=== PATIENT | female | born 1950 | race Caucasian/White ===

== ENCOUNTER 2016-09-06 14:36 | Emergency (ER) | payer MEDICARE ==
[2016-09-06 15:24] VITALS: BP 159/82
[2016-09-06] MEDS ORDERED: Acetaminophen TAB* 325 MG PO ONE (15:55)
--- NOTE | 2016-09-06 15:55 | UC ---
Head Injury HPI - HPI Summary HPI Summary: 66 year old female with complaints of falling on the ice approximately 4 hours ago. She states she hit the back of her head, elbows, and right hip. She was able to get up with help from her son. She is able to walk bearing full weight. She recalls all events of the fall and following the fall. She is concerned about the bump on her head. Denies LOC, nausea or vomiting. She denies taking any blood thinning medication - History Of Current Complaint Chief Complaint: UCHeadInjury Stated Complaint: head injury-fell on ice Time Seen by Provider: 09/06/16 15:43 Hx Obtained From: Patient ?: No Onset/Duration: Sudden Onset, Lasting Hours - 4, Still Present Severity Currently: Mild Severity Initially: Severe Pain Scale Used: 0-10 Numeric - 3 Character: Dull Aggravating Factor(s): Other - touching her head Alleviating Factor(s): Nothing Associated Signs And Symptoms: Negative: LOC (Time In Secs./Mins/Hrs), LOC Duration Unknown, Confusion, Memory Loss, Seizure, Epistaxis, Dental Malocclusion, Neck Pain, Nausea, Vomiting - Risk Factors SDH Risk Factor: Negative - Allergies/Home Medications Allergies/Adverse Reactions: Allergies Allergy/AdvReac Type Severity Reaction Status Date / Time No Known Allergies Allergy Verified 09/06/16 15:24 Home Medications: Home Medications Anastrozole (NF) [Arimidex (NF)] 1 mg PO BEDTIME 09/06/16 [History Confirmed ] Cholecalciferol [Vitamin D3 Super Strength] 2,000 unit PO BEDTIME 09/06/16 [ History Confirmed 09/06/16] Citalopram TAB* [CeleXA TAB*] 40 mg PO BEDTIME 09/06/16 [History Confirmed 09/06] Metoprolol Succinate [Toprol Xl] 1 tab BEDTIME 09/06/16 [History Confirmed 09/06] Omeprazole CAP* [Prilosec CAP* 20 MG] 40 mg PO BEDTIME 09/06/16 [History Confirmed 09/06/16] PMH/Surg Hx/FS Hx/Imm Hx Previously Healthy: Yes Cardiovascular History Of: Reports: Cardiac Disorders - RBBB, Hypertension - h/o Respiratory History Of: Denies: Asthma - Surgical History Surgical History: Yes Surgery Procedure, Year, and Place: left breast lumpectomy/nodes. hiatal hernia repair. cardiac cath - Family History Known Family History: Positive: Hypertension Negative: Diabetes - Social History Occupation: Retired Lives: With Family Alcohol Use: None Substance Use Type: None Smoking Status (MU): Never Smoked Tobacco - Immunization History Most Recent Influenza Vaccination: [id number] Review of Systems Constitutional: Negative Skin: Bruising - right elbow Eyes: Negative ENT: Negative Respiratory: Negative Cardiovascular: Negative Gastrointestinal: Negative Genitourinary: Negative Motor: Negative Neurovascular: Negative Musculoskeletal: Arthralgia - elbows and right hip Neurological: Headache - mild Psychological: Negative All Other Systems Reviewed And Are Negative: Yes Physical Exam Triage Information Reviewed: Yes Appearance: Well-Appearing, Well-Nourished, Pain Distress - pacing in the exam room. easily directed and cooperative Vital Signs: Initial Vital Signs Temp 98.7 F 09/06/16 15:18 Pulse 51 09/06/16 15:18 Resp 17 09/06/16 15:18 BP 159/82 09/06/16 15:18 Pulse Ox 100 09/06/16 15:18 Vital Signs Reviewed: Yes Eyes: Positive: Conjunctiva Clear, Other: - PERRLA. Negative: Discharge ENT: Positive: Pharynx normal, Other: - Small tender raised bump on right posterior head. Skin intact, no obvious bruising. no aguilar sign. Negative: Nasal congestion Neck: Positive: Supple, Nontender - no midline cervical tenderness, No Lymphadenopathy Respiratory: Positive: Lungs clear, Normal breath sounds Cardiovascular: Positive: RRR, No Murmur Musculoskeletal: Positive: Strength Intact - ambulating with steady gate., ROM Intact - all 4 extremities. Small bruising noted at right elbow. Full rom of right shoulder, elbow and wrist., No Edema - No bruising or redness noted on right hip. Mild tendernesss with palpation over posterior right hip. No tenderness over spine Neurological: Positive: Alert, Muscle Tone Normal Psychological: Positive: Age Appropriate Behavior - pleasant and cooperative Skin: Negative: rashes, breakdown Head Injury Course/Dx - Course Course Of Treatment: Tylenol for pain - Differential Dx/Diagnosis Differential Diagnosis/HQI/PQRI: Contusion Provider Diagnoses: Minor head trauma. Contusion with mild hematoma of right elbow. Contusion right hip Discharge - Discharge Plan Condition: Stable Disposition: HOME Prescriptions: Acetaminophen TAB* [Tylenol TAB*] 650 mg PO Q6H PRN #120 tab PRN Reason: Pain Patient Education Materials: Contusion in Adults (ED), Head Injury (ED) Referrals: Pranay Salgado JR, MD [Primary Care Provider] -
== END 2016-09-06 16:10 | disposition home or self-care (01) ==
LOC: UCCORT 14:36 → MERGE 14:36 → UCCORT 16:10
DX: S09.90XA Unspecified injury of head, initial encounter (principal); S50.01XA Contusion of right elbow, initial encounter; S70.01XA Contusion of right hip, initial encounter; I10 Essential (primary) hypertension; W00.0XXA Fall on same level due to ice and snow, initial encounter; Y92.9 Unspecified place or not applicable
CPT/HCPCS: 99202; A9270-GY; G0463

== ENCOUNTER 2017-12-22 16:25 | Emergency (ER) | payer MEDICARE ==
[2017-12-22 16:41] VITALS: BP 155/67
--- NOTE | 2017-12-22 17:04 | UC ---
Ear Complaint HPI - HPI Summary HPI Summary: 67 yo female with decreased hearing both ears tried to clean them used q-tip some blood left EAC tried to flush them herself - History of Current Complaint Chief Complaint: UCEar Stated Complaint: BILATERAL EAR PAIN, SORE THROAT Time Seen by Provider: 12/22/17 16:42 Hx Obtained From: Patient Onset/Duration: Gradual Onset, Lasting Days Severity Initially: Mild Severity Currently: Mild Pain Intensity: 2 Pain Scale Used: 0-10 Numeric Associated Signs/Symptoms: Positive: Hearing Loss, Trauma to Ear - qtip - Allergies/Home Medications Allergies/Adverse Reactions: Allergies Allergy/AdvReac Type Severity Reaction Status Date / Time No Known Allergies Allergy Verified 06/25/15 13:59 PMH/Surg Hx/FS Hx/Imm Hx Previously Healthy: Yes Cardiovascular History: Hypertension GI/ History: Gastroesophageal Reflux - Surgical History Surgical History: Yes Surgery Procedure, Year, and Place: left breast lumpectomy/nodes. hiatal hernia repair. cardiac cath - Family History Known Family History: Positive: Hypertension Negative: Diabetes - Social History Alcohol Use: None Substance Use Type: None Smoking Status (MU): Never Smoked Tobacco - Immunization History Most Recent Influenza Vaccination: [id number] Review of Systems Constitutional: Negative Skin: Negative Eyes: Negative ENT: Ear Ache - and dereased hearing Respiratory: Negative Cardiovascular: Negative Gastrointestinal: Negative Genitourinary: Negative Motor: Negative Neurovascular: Negative Musculoskeletal: Negative Neurological: Negative Psychological: Negative Is Patient Immunocompromised?: No All Other Systems Reviewed And Are Negative: Yes Physical Exam Triage Information Reviewed: Yes Appearance: Well-Appearing, No Pain Distress, Well-Nourished Vital Signs: Initial Vital Signs Temp 97.9 F 12/22/17 16:36 Pulse 57 12/22/17 16:36 Resp 17 12/22/17 16:36 BP 155/67 12/22/17 16:36 Pulse Ox 100 12/22/17 16:36 Vital Signs Reviewed: Yes Eyes: Positive: Conjunctiva Clear ENT: Negative: Hearing grossly normal, TMs normal - unable to vis due to cerumen Neck: Positive: Supple, Nontender Respiratory: Positive: Lungs clear, Normal breath sounds, No respiratory distress Cardiovascular: Positive: RRR, No Murmur Musculoskeletal: Positive: ROM Intact, No Edema Neurological: Positive: Alert Psychological Exam: Normal Skin Exam: Normal Re-Evaluation - Re-Evaluation First Eval Re-Evaluation Time: 17:17 Change: Improved - hearing back to normal post flush Ear Complaint Course/Dx - Differential Dx/Diagnosis Provider Diagnoses: cerumen imaction R/L ear Discharge - Sign-Out/Discharge Documenting (check all that apply): Discharge/Admit/Transfer - Discharge Plan Condition: Stable Disposition: HOME Patient Education Materials: Cerumen Impaction (ED) Referrals: Devin Diggs MD [Primary Care Provider] - - Billing Disposition and Condition Condition: STABLE Disposition: HOME
== END 2017-12-22 17:21 | disposition home or self-care (01) ==
LOC: UCCORT 16:25
DX: H61.23 Impacted cerumen, bilateral (principal); I10 Essential (primary) hypertension
CPT/HCPCS: 69210; 99213; G0463

== ENCOUNTER 2018-06-01 12:01 | Emergency (ER) | payer MEDICARE ==
--- OUTSIDE RECORDS SUMMARY | 2018-06-01 12:26 | XMS REPORT | Continuity of Care Document ---
:1950 External Reference #:[id number] Author Name Devin Diggs M.D. Address [address] [facility] [address] [place] [address] Care Team Providers Name Role Phone Umang Ramon D.O. 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 Helen Allen PayID: [id number] [address] [place] [address] Advance Directives Description No Information Available Problems Date Description Provider Status Onset: 10/23/2011 Benign essential hypertension Devin Diggs M.D. Active Onset: 10/23/2011 Anxiety state Devin Diggs M.D. Active Onset: 10/23/2011 Depressive disorder Devin Diggs M.D. Active Onset: 10/23/2011 Chronic obstructive lung disease Devin Diggs M.D. Active Onset: 10/23/2011 Palpitations Devin Diggs M.D. Active Onset: 10/23/2011 Conduction disorder of the heart Devin Diggs M.D. Active Onset: 10/23/2011 Breast lump Devin Diggs M.D. 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 Active Family History Date Family Member(s) Problem(s) Comments Father 93 Mother 87 Children 1 First Son 30 First Son No Current Problems Siblings 4 First Brother 65 First Brother No Current Problems Second Brother 60 Second Brother Anxiety Third Brother 50 Third Brother Anxiety First Sister 68 First Sister No Current Problems Social History Type Date Description Comments Sex Unknown Marital Status Legal Status: Marital Status Has been 2 times Tobacco Use Start: Unknown Never Smoked Cigarettes ETOH Use Rarely consumed alcohol in the past Tobacco Use Start: Unknown Patient has never smoked Allergies, Adverse Reactions, Alerts Description No Known Drug Allergies Medications Medication Date Status Form Strength Qnty SIG Indications Ordering Provider Elimite Hx Cream 5% 60gm apply to B86 Dontae 018 - all skin Devin Hopkins, and M.D. 018 leave for 12 hours then rinse Vitamin D3 Active Capsules 2000Unit 90caps 1 by M81.0 Dontae, 018 mouth Devin Hopkins, every M.D. day Metoprolol Active Tablets ER 100mg 30tabs 1 by I10 Dontae, Succinate ER 016 24HR mouth Devin Hopkins, every M.D. day Omeprazole Active Capsules DR 40mg 30caps 1 by K21.0 Dontae, 016 mouth Devin Hopkins, every M.D. day K30 R05 Citalopram 10/23/2011 Active Tablets 40mg 30tabs take one F41.9 Dontae, Hydrobromide tablet by Devin Hopkins, mouth once M.D. daily F33.9 Amoxicillin 10/09/2014 Hx Tablets 500mg 30tabs 1 by mouth three 466.0 DontaeDevin, - times a day M.D. 10/19/2014 461.8 382.9 Oow 04/20/2014 - Hx Please excuse Gianni 10/08/2014 Helen from [facility] Leonardo work 04/20/2014 thru 04/23/2014 Spironolactone 04/20/2014 - Hx Tablets 25mg 30ta take 1 tablet R60. Gianni, 01/08/2017 bs by mouth in 0 Malissa, [employer] in the morning Azithromycin 08/29/2013 - Hx Tablets 250mg 1Pac 2 po today 461. Devin Diggs 09/02/2013 k then 1 po 8 M. MInder. next 4 days Albuterol Sulfate 08/29/2013 - Hx Nebulizer (2.5m 180m [facility] J[facility]. [facility] g/3ML l nebulizer q4 9 M.Rissa ) hours prn for 0.083 cough/sob % R06.02 Nebulizer And 08/29/2013 - Hx 1units uad for J44.9 Dontae, Tubing 11/08/2017 cough/SOB Devin Hopkins M.D. Levofloxacin 08/18/2013 - Hx Tablets 500mg 10tabs 1 po qd 461.8 Dontae, 08/28/2013 Devin Hopkins M.D. 466.0 462 Prednisone 08/18/2013 - Hx Tablets 20mg 20tabs 2 tab by mouth daily 4 461.8 [facility], 09/01/2013 days,30x3d,20x2d,10x7d Devin Hopkins M.D. 786.2 466.0 Ventolin HFA 08/18/2013 - Hx Aerosol 108(90Base) 2Mdi 2 puffs q4 R06.02 Gianni, 11/08/2017 mcg/Act hours as Malissa, needed [employer] cough/sob Omeprazole 02/28/2013 - Hx Capsules 40mg 30caps 1 po qd 530.11 Dontae, 05/10/2013 DR Devin Hopkins M.D. Anastrozole 01/21/2012 - Hx Tablets 1mg 90tabs 1 tab by C50.012 [facility], 01/08/2017 mouth every Devin Hopkins, day(per [facility] until 2016) Metoprolol 10/23/2011 - Hx Tablets 50mg 180tab take 2 I10 Dontae, Tartrate 10/02/2015 s tablets by Ahkal Gentile M.D. Medications Administered in Office Medication Date Status Form Strength Qnty SIG Indications Ordering Provider Solu-Medrol Administered Injection Gaurav, 125MG 014 ZOIE Dowd Rocephin 250 Administered Injection Gaurav, 014 Noemí, [employer] Rocephin 250 Administered Injection Gaurav, 014 [place]em[place], [employer] Rocephin 250 Administered Injection Gaurav, 014 Onemí, [employer] Rocephin 250 Administered Injection Gaurav, 014 Noemí, [employer] Immunizations CPT Code Status Date Vaccine Lot # [id number] Refused 06/01/2014 Flu Vaccine Vital Signs Date Vital Result Comment 05/04/2018 3:02pm BP Systolic 112 mmHg BP Diastolic 60 mmHg Height 55 inches 4'7" Weight 158.00 lb BMI (Body Mass Index) 36.7 kg/m2 Heart Rate 59 /min Respiratory Rate 16 /min 11/16/2017 9:58am BP Systolic 126 mmHg BP Diastolic 70 mmHg Height 55 inches 4'7" Weight 158.00 lb BMI (Body Mass Index) 36.7 kg/m2 Heart Rate 86 /min Respiratory Rate 18 /min 01/15/2017 10:48am BP Systolic 126 mmHg BP Diastolic 64 mmHg Height 55 inches 4'7" Weight 167.00 lb BMI (Body Mass Index) 38.8 kg/m2 Heart Rate 58 /min Respiratory Rate 16 /min 11/06/2015 8:44am BP Systolic 145 mmHg BP Diastolic 81 mmHg Height 55 inches 4'7" Weight 169.00 lb BMI (Body Mass Index) 39.3 kg/m2 Heart Rate 63 /min Body Temperature 96.5 F Respiratory Rate 18 /min 10/02/2015 11:34am BP Systolic 166 mmHg BP Diastolic 81 mmHg Height 55 inches 4'7" Weight 169.00 lb BMI (Body Mass Index) 39.3 kg/m2 Heart Rate 57 /min Respiratory Rate 18 /min 10/09/2014 11:18am BP Systolic 132 mmHg BP Diastolic 82 mmHg Height 55 inches 4'7" Weight 153.00 lb BMI (Body Mass Index) 35.6 kg/m2 Heart Rate 71 /min Body Temperature 97.3 F Respiratory Rate 16 /min 06/01/2014 2:09pm BP Systolic 138 mmHg BP Diastolic 86 mmHg Height 55 inches 4'7" Weight 157.00 lb BMI (Body Mass Index) 36.5 kg/m2 Heart Rate 68 /min Body Temperature 97.0 F Respiratory Rate 18 /min 04/20/2014 1:58pm BP Systolic 168 mmHg BP Diastolic 100 mmHg BP Systolic Recheck 156 mmHg BP Diastolic Recheck 80 mmHg Height 55 inches 4'7" Weight 152.00 lb BMI (Body Mass Index) 35.3 kg/m2 Heart Rate 96 /min Respiratory Rate 18 /min 08/29/2013 10:15am BP Systolic 142 mmHg BP Diastolic 94 mmHg Height 55 inches 4'7" Weight 152.00 lb BMI (Body Mass Index) 35.3 kg/m2 Heart Rate 89 /min Body Temperature 9.0 F Respiratory Rate 24 /min 08/18/2013 10:32am BP Systolic 128 mmHg BP Diastolic 70 mmHg Height 55 inches 4'7" Weight 152.00 lb BMI (Body Mass Index) 35.3 kg/m2 Heart Rate 71 /min Body Temperature 98.1 F Respiratory Rate 18 /min 05/31/2013 8:33am BP Systolic 138 mmHg BP Diastolic 80 mmHg Height 55 inches 4'7" Weight 155.00 lb BMI (Body Mass Index) 36.0 kg/m2 Heart Rate 60 /min Respiratory Rate 20 /min 02/28/2013 10:02am BP Systolic 142 mmHg BP Diastolic 98 mmHg Height 55 inches 4'7" Weight 160.00 lb BMI (Body Mass Index) 37.2 kg/m2 Heart Rate 57 /min Respiratory Rate 18 /min 02/15/2013 3:06pm BP Systolic 124 mmHg BP Diastolic 82 mmHg Height 55 inches 4'7" Weight 160.00 lb BMI (Body Mass Index) 37.2 kg/m2 Heart Rate 76 /min Respiratory Rate 20 /min 06/18/2012 9:04am BP Systolic 130 mmHg BP Diastolic 84 mmHg Height 55 inches 4'7" Weight 160.00 lb BMI (Body Mass Index) 37.2 kg/m2 Heart Rate 80 /min Respiratory Rate 20 /min 06/11/2012 10:03am BP Systolic 110 mmHg BP Diastolic 80 mmHg Weight 161.00 lb Heart Rate 76 /min Respiratory Rate 20 /min 06/02/2012 8:45am BP Systolic 140 mmHg BP Diastolic 82 mmHg Height 56 inches 4'8" Weight 160.00 lb BMI (Body Mass Index) 35.9 kg/m2 Heart Rate 60 /min Respiratory Rate 20 /min 01/21/2012 2:14pm Height 56 inches 4'8" Weight 160.00 lb BMI (Body Mass Index) 35.9 kg/m2 Heart Rate 78 /min Last Menstrual Period 0 Respiratory Rate 14 /min Results Test Date Facility Test Result H/L Range Note Laboratory test 12/31/2017 [facility] Blood Urea 20 mg/dL 6-24 finding Nitrogen BUN Creatinine 12/31/2017 [facility] Creatinine 0.87 mg/dL 0.51-0.95 Egfr Non- 64.7 >60 Egfr 83.3 >60 1 CBC Auto Diff 01/15/2017 [facility] White Blood Count 7.0 10^3/uL 3.5-10.8 Red Blood Count 3.97 10^6/uL Low 4.0-5.4 Hemoglobin 12.0 g/dL 12.0-16.0 Hematocrit 36 % 35-47 Mean Corpuscular Volume 91 fL 80-97 Mean Corpuscular Hemoglobin 30 pg 27-31 Mean Corpuscular HGB Conc 33 g/dL 31-36 Red Cell Distribution Width 13 % 10.5-15 Platelet Count 215 10^3/uL 150-450 Mean Platelet Volume 10 um3 7.4-10.4 Abs Neutrophils 4.6 10^3/uL 1.5-7.7 Abs Lymphocytes 1.8 10^3/uL 1.0-4.8 Abs Monocytes 0.5 10^3/uL 0-0.8 Abs Eosinophils 0 10^3/uL 0-0.6 Abs Basophils 0.1 10^3/uL 0-0.2 Abs Nucleated RBC 0 10^3/uL Granulocyte % 66.5 % 38-83 Lymphocyte % 25.1 % 25-47 Monocyte % 6.8 % 1-9 Eosinophil % 0.7 % 0-6 Basophil % 0.9 % 0-2 Nucleated Red Blood Cells % 0 Comp Metabolic Panel 01/15/2017 [facility] Sodium 139 mmol/L 133- 145 Potassium 4.0 mmol/L 3.5-5.0 Chloride 107 mmol/L 101-111 Co2 Carbon Dioxide 26 mmol/L 22-32 Anion Gap 6 mmol/L 2-11 Glucose 96 mg/dL 70-100 Blood Urea Nitrogen 12 mg/dL 6-24 Creatinine 0.76 mg/dL 0.51-0.95 BUN/Creatinine Ratio 15.8 8-20 Calcium 9.2 mg/dL 8.6-10.3 Total Protein 6.2 g/dL Low 6.4-8.9 Albumin 3.8 g/dL 3.2-5.2 Globulin 2.4 g/dL 2-4 Albumin/Globulin Ratio 1.6 1-3 Total Bilirubin 0.90 mg/dL 0.2-1.0 Alkaline Phosphatase 64 U/L 34-104 Alt 12 U/L 7-52 Ast 15 U/L 13-39 Egfr Non- 75.9 >60 Egfr 97.6 >60 2 Laboratory test 01/15/2017 [facility] TSH (Thyroid 2.01 mcIU/mL 0.34 -5.60 3 finding Stim Horm) Vitamin D Total 25(Oh) 42.0 ng/mL 30-50 4 Lipid Profile (Trig/Chol/HDL) 01/15/2017 [facility] Triglycerides 91 mg /dL 5 Cholesterol 209 mg/dL 6 HDL Cholesterol 53.5 mg/dL 7 LDL Cholesterol 137 mg/dL 8 CBC Auto Diff 10/02/2015 [facility] White Blood Count 8.1 10^3/uL 3.5-10.8 Red Blood Count 4.24 10^6/uL 4.0-5.4 Hemoglobin 12.9 g/dL 12.0-16.0 Hematocrit 40 % 35-47 Mean Corpuscular Volume 93 fL 80-97 Mean Corpuscular Hemoglobin 31 pg 27-31 Mean Corpuscular HGB Conc 33 g/dL 31-36 Red Cell Distribution Width 13 % 10.5-15 Platelet Count 247 10^3/uL 150-450 Mean Platelet Volume 10 um3 7.4-10.4 Abs Neutrophils 6.0 10^3/uL 1.5-7.7 Abs Lymphocytes 1.5 10^3/uL 1.0-4.8 Abs Monocytes 0.5 10^3/uL 0-0.8 Abs Eosinophils 0 10^3/uL 0-0.6 Abs Basophils 0 10^3/uL 0-0.2 Abs Nucleated RBC 0.01 10^3/uL Granulocyte % 74.4 % 38-83 Lymphocyte % 18.4 % Low 25-47 Monocyte % 6.1 % 1-9 Eosinophil % 0.6 % 0-6 Basophil % 0.5 % 0-2 Nucleated Red Blood Cells % 0.1 Comp Metabolic Panel 10/02/2015 [facility] Sodium 139 mmol/L 133- 145 Potassium 4.5 mmol/L 3.5-5.0 Chloride 104 mmol/L 101-111 Co2 Carbon Dioxide 29 mmol/L 22-32 Anion Gap 6 mmol/L 2-11 Glucose 74 mg/dL 70-100 Blood Urea Nitrogen 17 mg/dL 6-24 Creatinine 0.81 mg/dL 0.51-0.95 BUN/Creatinine Ratio 21.0 High 8-20 Calcium 9.4 mg/dL 8.6-10.3 Total Protein 6.6 g/dL 6.4-8.9 Albumin 4.0 g/dL 3.2-5.2 Globulin 2.6 g/dL 2-4 Albumin/Globulin Ratio 1.5 1-3 Total Bilirubin 1.10 mg/dL High 0.2-1.0 Alkaline Phosphatase 64 U/L 34-104 Alt 12 U/L 7-52 Ast 18 U/L 13-39 Egfr Non- 70.7 >60 Egfr 91.0 >60 9 Lipid Profile 10/02/2015 [facility] Triglycerides 106 mg/dL 10 (Trig/Chol/HDL) Cholesterol 205 mg/dL 11 HDL Cholesterol 56.8 mg/dL 12 LDL Cholesterol 127 mg/dL 13 Laboratory test finding 10/02/2015 [facility] Magnesium 1.7 mg/dL Low 1.9-2.7 TSH (Thyroid Stim Horm) 2.01 ?IU/mL 0.34-5.60 Vitamin D Total 25(Oh) 31.3 ng/mL 30-50 Creatinine 07/12/2014 [facility] Creatinine 0.85 mg/dL 0.51-0.95 Egfr Non- 67.1 >60 Egfr 86.3 >60 14 Laboratory test 07/12/2014 [facility] Blood Urea 22 mg/dL 6-24 finding Nitrogen Laboratory test 06/02/2014 [facility] Lipase 22 U/L 11.0-82.0 finding Amylase 46 U/L 29-103 CMP Panel (14 Test) 06/02/2014 [facility] Sodium 137 mmol/L 133-145 Potassium 4.3 mmol/L 3.7-5.6 Chloride 102 mmol/L 101-111 Co2 Carbon Dioxide 30 mmol/L 22-32 Anion Gap 5 mmol/L 2-11 Glucose 115 mg/dL High 70-100 Blood Urea Nitrogen 20 mg/dL 6-24 Creatinine 0.84 mg/dL 0.51-0.95 BUN/Creatinine Ratio 23.8 High 8-20 Calcium 9.5 mg/dL 8.6-10.3 Total Protein 6.8 g/dL 6.4-8.9 Albumin 4.1 g/dL 3.2-5.2 Globulin 2.7 g/dL 2-4 Albumin/Globulin Ratio 1.5 1-3 Total Bilirubin 0.70 mg/dL 0.2-1.0 Alkaline Phosphatase 74 U/L 34-104 Alt 16 U/L 7-52 Ast 18 U/L 13-39 Egfr Non- 68.0 >60 Egfr 87.5 >60 15 CBC With Auto 06/02/2014 [facility] White Blood Count 7.1 10^3/uL 4.8-10.8 Diff Red Blood Count 3.91 10^6/uL Low 4.0-5.4 Hemoglobin 12.1 g/dL 12.0-16.0 Hematocrit 36 % 35-47 Mean Corpuscular Volume 91 fL 80-97 Mean Corpuscular Hemoglobin 31 pg 27-31 Mean Corpuscular HGB Conc 34 g/dL 31-36 Red Cell Distribution Width 13 % 10.5-15 Platelet Count 229 10^3/uL 150-450 Mean Platelet Volume 10 um3 7.4-10.4 Abs Neutrophils 4.2 10^3/uL 1.5-7.7 Abs Lymphocytes 2.0 10^3/uL 1.0-4.8 Abs Monocytes 0.6 10^3/uL 0-0.8 Abs Eosinophils 0.3 10^3/uL 0-0.6 Abs Basophils 0.1 10^3/uL 0-0.2 Abs Nucleated RBC 0 10^3/uL Granulocyte % 59.8 % 38-83 Lymphocyte % 27.5 % 25-47 Monocyte % 8.0 % 1-9 Eosinophil % 3.7 % 0-6 Basophil % 1.0 % 0-2 Nucleated Red Blood Cells % 0 Laboratory test finding 04/20/2014 [facility] Troponin I 0.00 ng/mL <0.03 16 C Reactive Protein 2.42 mg/L < 5.00 17 B Type Natriuretic Peptide 34 pg/mL 18 Comp Metabolic Panel 04/20/2014 [facility] Sodium 138 mmol/L 133- 145 Potassium 3.6 mmol/L Low 3.7-5.6 Chloride 103 mmol/L 101-111 Co2 Carbon Dioxide 28 mmol/L 22-32 Anion Gap 7 mmol/L 2-11 Glucose 94 mg/dL 70-100 Blood Urea Nitrogen 11 mg/dL 6-24 Creatinine 0.60 mg/dL 0.51-0.95 BUN/Creatinine Ratio 18.3 8-20 Calcium 9.7 mg/dL 8.6-10.3 Total Protein 7.0 g/dL 6.4-8.9 Albumin 4.0 g/dL 3.2-5.2 Globulin 3.0 g/dL 2-4 Albumin/Globulin Ratio 1.3 1-3 Total Bilirubin 1.20 mg/dL High 0.2-1.0 Alkaline Phosphatase 63 U/L 34-104 Alt 23 U/L 7-52 Ast 26 U/L 13-39 Egfr Non- 100.3 >60 Egfr 129.0 >60 19 CBC Auto Diff 04/20/2014 [facility] White Blood Count 7.6 10^3/uL 4.8-10.8 Red Blood Count 3.82 10^6/uL Low 4.0-5.4 Hemoglobin 12.0 g/dL 12.0-16.0 Hematocrit 35 % 35-47 Mean Corpuscular Volume 90 fL 80-97 Mean Corpuscular Hemoglobin 31 pg 27-31 Mean Corpuscular HGB Conc 35 g/dL 31-36 Red Cell Distribution Width 14 % 10.5-15 Platelet Count 249 10^3/uL 150-450 Mean Platelet Volume 8 um3 7.4-10.4 Abs Neutrophils 5.2 10^3/uL 1.5-7.7 Abs Lymphocytes 1.6 10^3/uL 1.0-4.8 Abs Monocytes 0.5 10^3/uL 0-0.8 Abs Eosinophils 0.2 10^3/uL 0-0.6 Abs Basophils 0 10^3/uL 0-0.2 Abs Nucleated RBC 0 10^3/uL Granulocyte % 69.3 % 38-83 Lymphocyte % 21.4 % Low 25-47 Monocyte % 6.0 % 1-9 Eosinophil % 2.8 % 0-6 Basophil % 0.5 % 0-2 Nucleated Red Blood Cells % 0 Throat-Beta Strept 02/20/2014 [facility] Throat Beta (SEE NOTE) 20 Strep Culture Surgical Pathology 12/13/2013 [facility] S RUN DATE: 12/14/ <SEE NOTE> Laboratory test 02/28/2013 [facility] Thyroid Stim 3.84 uIU/mL 0.49-4. finding Hormone 67 Liver Function 02/28/2013 [facility] Total Protein 6.8 g/dL 6.3-8.0 Tests Albumin 3.7 g/dL 3.5-5.0 Globulin 3.1 g/dL 1.9-4.3 Alb/Glob 1.2 ratio Bilirubin,Total 0.7 mg/dL 0.2-1.2 Bilirubin,Direct 0.2 mg/dL 0.1-0.4 Bilirubin,Indirect 0.5 mg/dL 0.0-0.9 Sgot/Ast 20 U/L 16-40 SGPT/Alt 18 U/L Low 30-65 Alkaline Phosphatase 84 U/L 50-136 LDL Cholesterol Profile 02/28/2013 [facility] Cholesterol 187 mg/dL 120- 200 Triglycerides 110 mg/dL 16-231 HDL Cholesterol 54 mg/dL 29-83 LDL-Cholesterol 111 mg/dL 62-185 Laboratory test 02/28/2013 [facility] C-Reactive 2.03 mg/L 0.00-3.00 22 finding Protein,Cardiac Sedimentation Rate 11 mm/hr 0-30 CBC/Manual Differential 02/28/2013 [facility] White Blood Count 6.2 K/uL 3.1-10.7 Red Blood Count 4.10 M/uL 3.90-5.40 Hemoglobin 12.9 gm/dL 11.6-15.8 Hematocrit 39.1 % 36.0-46.1 Mean Cell Volume 95.4 fl 80.9-99.0 Mean Corpuscular HGB 31.5 pg 25.9-32.7 Mean Corpuscular HGB Conc 33.0 g/dL 30.8-34.3 Platelet Count 223 K/uL 155-360 Red Cell Distri Width %CV 13.4 % 11.7-14.4 Mean Platelet Volume 11.9 fL 8.9-12.4 Total Cells Counted 100 #CELLS Neutrophils% 75 % High 33-73 Lymph% 20 % 17-56 Platelet Estimate NORMAL Band% 1 % 0-8 Atypical Lymph% 1 % 0-7 Monocyte% 3 % 0-10 Anisocytosis 0-1+ Basic Metabolic Panel 02/28/2013 [facility] [facility] Glucose 68 mg/dL Low 76-115 BUN 17 mg/dL 5-23 Creatinine 0.8 mg/dL 0.5-1.4 Glom Filtration Rate, Estimate >60 mL/min >60 If >60 mL/min >60 23 BUN/Creat 21.2 ratio Sodium 142 mmol/L 136-145 Potassium 3.8 mmol/L 3.5-5.1 Chloride 104 mmol/L 98-107 Carbon Dioxide 29 mEq/L 18-29 Anion Gap 13 mEq/L 8-16 Calcium 9.2 mg/dL 8.5-10.1 Laboratory test 06/11/2012 [facility] ThinPrep Pap: See Note 24 finding Endocervix Smear CBC W/Automated Diff 06/11/2012 [facility] White Blood Count 6.1 K/uL 3.1- 10.7 Red Blood Count 4.06 M/uL 3.90-5.40 Hemoglobin 12.5 gm/dL 11.6-15.8 Hematocrit 38.2 % 36.0-46.1 Mean Cell Volume 94.1 fl 80.9-99.0 Mean Corpuscular HGB 30.8 pg 25.9-32.7 Mean Corpuscular HGB Conc 32.7 g/dL 30.8-34.3 Platelet Count 239 K/uL 155-360 Red Cell Distri Width SD 45.3 fl 3-47 Red Cell Distri Width %CV 13.6 % 11.7-14.4 Mean Platelet Volume 12.1 fL 8.9-12.4 Neut% 69.5 % 40.4-72.8 Lymph % 22.3 % 17.0-46.1 [place] % 6.9 % 4.3-13.2 Eo% 0.8 % 0.0-6.6 Bas% 0.5 % 0.0-1.1 Neut# 4.21 K/uL 1.0-7.0 Lymph # 1.35 K/uL 0.8-3.4 [place] # 0.42 K/uL 0.3-0.9 Eos # 0.05 K/uL 0.0-0.5 Baso # 0.03 K/uL 0.0-0.1 Laboratory test 06/11/2012 [place] [facility] TSH Reflex FT4 1.91 uIU/mL 0.49- 4.67 25 finding and/or FT3 LDL Cholesterol 06/11/2012 [place] Cholesterol 196 mg/dL 120-200 Profile Triglycerides 97 mg/dL 16-231 HDL Cholesterol 57 mg/dL 29-83 LDL-Cholesterol 120 mg/dL 62-185 Comprehensive Metabolic Panel 06/11/2012 [place] Glucose 81 mg/dL 76- 115 BUN 14 mg/dL 5-23 Creatinine 0.7 mg/dL 0.5-1.4 Glom Filtration Rate, Estimate >60 mL/min >60 If >60 mL/min >60 26 BUN/Creat 20.0 ratio Sodium 140 mmol/L 136-145 Potassium 4.7 mmol/L 3.5-5.1 Chloride 104 mmol/L 98-107 Carbon Dioxide 29 mEq/L 18-29 Anion Gap 12 mEq/L 8-16 Calcium 9.2 mg/dL 8.5-10.1 Total Protein 7.2 g/dL 6.3-8.0 Albumin 3.9 g/dL 3.5-5.0 Globulin 3.3 g/dL 1.9-4.3 Alb/Glob 1.2 ratio Bilirubin,Total 1.5 mg/dL High 0.2-1.2 Sgot/Ast 29 U/L 16-40 SGPT/Alt 21 U/L Low 30-65 Alkaline Phosphatase 69 U/L 50-136 Lipid Profile 12/17/2011 [facility] Triglyceride 48 mg/dL 40-200 (Trig/Chol/HDL) Cholesterol 198 mg/dL Less Than 200 27 High Density Lipoprotein 58 mg/dL 40-60 28 Cholesterol/HDL Ratio 3.41 AVERAGE 1-4.44 Low Density Lipoprotein 130 mg/dL High Less Than 100 29 Liver Function Panel 12/17/2011 [facility] Total Protein 6.4 GM/DL 6.2-8.1 Albumin 3.9 GM/DL 3.2-5.2 Globulin 2.5 GM/DL 2-4 Albumin/Globulin Ratio 1.6 1-3 Bilirubin Total 1.2 mg/dL 0.4-1.5 30 Bilirubin Direct 0.2 mg/dL 0.1-0.5 Indirect Bilirubin 1.0 mg/dL 0.3-1.0 31 Alkaline Phosphatase 76 U/L 30-110 Alt (SGPT) 12 U/L Low 14-54 Ast (Sgot) 22 U/L 12-42 1 Because ethnic data is not always readily available, this report includes an eGFR for both -Americans and non- Americans. The National Kidney Disease Education Program (NKDEP) does not endorse the use of the MDRD equation for patients that are not between the ages of 18 and 70, are , have extremes of body size, muscle mass, or nutritional status, or are non- or non-. According to the National Kidney Foundation, irrespective of diagnosis, the stage of the disease is based on the level of kidney function: Stage Description GFR(mL/min/1.73 m(2)) 1 Kidney damage with normal or decreased GFR 90 2 Kidney damage with mild decrease in GFR 60-89 3 Moderate decrease in GFR 30-59 4 Severe decrease in GFR 15-29 5 Kidney failure <15 (or dialysis) 2 Because ethnic data is not always readily available, this report includes an eGFR for both -Americans and non- Americans. The National Kidney Disease Education Program (NKDEP) does not endorse the use of the MDRD equation for patients that are not between the ages of 18 and 70, are , have extremes of body size, muscle mass, or nutritional status, or are non- or non-. According to the National Kidney Foundation, irrespective of diagnosis, the stage of the disease is based on the level of kidney function: Stage Description GFR(mL/min/1.73 m(2)) 1 Kidney damage with normal or decreased GFR 90 2 Kidney damage with mild decrease in GFR 60-89 3 Moderate decrease in GFR 30-59 4 Severe decrease in GFR 15-29 5 Kidney failure <15 (or dialysis) 3 [id number] 4 [id number] 5 Desirable <150 Borderline high 150-199 High 200-499 Very High >500 6 Desirable <200 Borderline high 200-239 High >239 7 Low <40 Desirable: 40-60 High: >60 8 Desirable: <100 mg/dL Near Optimal: 100-129 mg/dL Borderline High: 130-159 mg/dL High: 160-189 mg/dL Very High: >189 mg/dL 9 Because ethnic data is not always readily available, this report includes an eGFR for both -Americans and non- Americans. The National Kidney Disease Education Program (NKDEP) does not endorse the use of the MDRD equation for patients that are not between the ages of 18 and 70, are , have extremes of body size, muscle mass, or nutritional status, or are non- or non-. According to the National Kidney Foundation, irrespective of diagnosis, the stage of the disease is based on the level of kidney function: Stage Description GFR(mL/min/1.73 m(2)) 1 Kidney damage with normal or decreased GFR 90 2 Kidney damage with mild decrease in GFR 60-89 3 Moderate decrease in GFR 30-59 4 Severe decrease in GFR 15-29 5 Kidney failure <15 (or dialysis) 10 Desirable <150 Borderline high 150-199 High 200-499 Very High >500 11 Desirable <200 Borderline high 200-239 High >239 12 Low <40 Desirable: 40-60 High: >60 13 Desirable: <100 mg/dL Near Optimal: 100-129 mg/dL Borderline High: 130-159 mg/dL High: 160-189 mg/dL Very High: >189 mg/dL 14 Because ethnic data is not always readily available, this report includes an eGFR for both -Americans and non- Americans. The National Kidney Disease Education Program (NKDEP) does not endorse the use of the MDRD equation for patients that are not between the ages of 18 and 70, are , have extremes of body size, muscle mass, or nutritional status, or are non- or non-. According to the National Kidney Foundation, irrespective of diagnosis, the stage of the disease is based on the level of kidney function: Stage Description GFR(mL/min/1.73 m(2)) 1 Kidney damage with normal or decreased GFR 90 2 Kidney damage with mild decrease in GFR 60-89 3 Moderate decrease in GFR 30-59 4 Severe decrease in GFR 15-29 5 Kidney failure <15 (or dialysis) 15 Because ethnic data is not always readily available, this report includes an eGFR for both -Americans and non- Americans. The National Kidney Disease Education Program (NKDEP) does not endorse the use of the MDRD equation for patients that are not between the ages of 18 and 70, are , have extremes of body size, muscle mass, or nutritional status, or are non- or non-. According to the National Kidney Foundation, irrespective of diagnosis, the stage of the disease is based on the level of kidney function: Stage Description GFR(mL/min/1.73 m(2)) 1 Kidney damage with normal or decreased GFR 90 2 Kidney damage with mild decrease in GFR 60-89 3 Moderate decrease in GFR 30-59 4 Severe decrease in GFR 15-29 5 Kidney failure <15 (or dialysis) 16 Reference Range and Interpretation: TnI (ng/mL) Interpretation Less Than 0.03 ng/mL Not supportive of diagnosis of [place] 0.03 - 0.50 ng/mL Indeterminate: suggest serial studies if clinically indicated. Greater than 0.5 ng/mL Consistent with diagnosis of [place] 17 Acute inflammation: >10.00 18 >100 to <200 pg/mL: likely compensated congestive heart failure (CHF) 200 to 400 pg/mL: likely moderate CHF >400 pg/mL: likely moderate to severe CHF [place] [facility] 19 Because ethnic data is not always readily available, this report includes an eGFR for both -Americans and non- Americans. The National Kidney Disease Education Program (NKDEP) does not endorse the use of the MDRD equation for patients that are not between the ages of 18 and 70, are , have extremes of body size, muscle mass, or nutritional status, or are non- or non-. According to the National Kidney Foundation, irrespective of diagnosis, the stage of the disease is based on the level of kidney function: Stage Description GFR(mL/min/1.73 m(2)) 1 Kidney damage with normal or decreased GFR 90 2 Kidney damage with mild decrease in GFR 60-89 3 Moderate decrease in GFR 30-59 4 Severe decrease in GFR 15-29 5 Kidney failure <15 (or dialysis) 20 RUN DATE: 02/23/14 [facility] LAB LIVE PAGE 1 RUN TIME: [address] [place] [id number] Specimen Inquiry Name: HELEN ALLEN : [address]: Pepito Tran MD Acct: [id number] Unit: [id number] AGE: 63 Location: [facility] Re02/20/14 SEX: F Status: DEP ER SPEC: [id number] ANTOINETTE: 02/20/14-[address] [facility] [address]: Pepito Tran MD REQ: [id number] RECD: 02/21/14 STATUS: SUSSY UPTON DR: Devin Diggs MD [facility] _ SOURCE: THROAT SPDESC: ORDERED: Throat Beta Str Procedure Result Verified Site Throat Beta Strep Culture Final 02/23/14- 07 ML Negative For Group A Beta Streptococcus END OF REPORT * ML=Testing performed at Main Lab DEPARTMENT OF PATHOLOGY, [address] [place], [place] [address] Josafat Mckeon M.D. Director [facility] # [id number] 21 RUN DATE: 12/14/13 [facility] LAB LIVE PAGE 1 RUN TIME: [address] [place], [place] [address] Specimen Inquiry Name: ALEJANDROHELEN Michael : [address]: Kishore Quesada MD Acct: [id number] Unit: [id number] AGE: 63 Location: ENDO Re12/13/13 SEX: F Status: REG REF SPEC: [id number] ANTOINETTE: 12/13/13- SUBM DR: Kishore Quesada MD REQ: [id number] RECD: 12/13/131445 STATUS: MAT UTPON DR: Devin Diggs MD _ ORDERED: LEVEL IV FINAL DIAGNOSIS Esophagus, biopsy: A. Squamous and columnar mucosa with epithelial hyperplasia and mild chronic inflammation, compatible with clinical history of Schatzki's ring. B. No evidence of intestinal metaplasia or dysplasia. CLINICAL HISTORY Emesis, dysphagia for EGD and screening colonoscopy. POST-OPERATIVE DIAGNOSIS EGD u.c. crico negative, body of esophagus tortuous with Schatzki ring ( biopsy and balloon dilation to 16 1/2, 18 mm. x 60 sec. Huge hiatal hernia, stomach, pylorus, duodenum negative. Screening colonoscopy to cecum, moderate pain, colonic diverticulosis - no polyps or stricture. Dysphagia secondary to hiatal hernia and Schatzki ring. Negative colonoscopy - diverticulosis. GROSS DESCRIPTION The specimen is received in formalin labeled Helen Allen, Schatzki' s Ring Biopsies and consists of a 0.5 x 0.5 x 0.2 cm. aggregate of multiple, wood-pink, irregular, soft tissue fragments. Submitted entirely, one cassette. Signed (signature on file) Fabiola Rubio MD 02/20 1523 END OF REPORT * ML=Testing performed at Main Lab DEPARTMENT OF PATHOLOGY, [address] [place] [address] Josafat Mckeon M.D. Director [facility] # [id number] 22 Relative Risk for Future Cardiovascular Event Low <1.00 Average 1.00 - 3.00 High >3.00 23 Note: Persistent reduction for 3 months or more in an eGFR <60 mL/min/1.73 m2 defines CKD. Patients with eGFR values >/=60 mL/min/1.73 m2 may also have CKD if evidence of persistent proteinuria is present. The original MDRD equation for estimated GFR is not valid for patients less than 18 years of age. Additional information may be found at www.kdoqi.org. 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 PAP ACCESSI QUESTIONNAIRE 08/19 PERTINENT CLINICAL HISTORY FOR PAP (TERRAZZO POLISHER HELPER) CYTOLOGY (Check all that apply): ? N Post ? N Menopause? Y LMP date: 10YRS Last Pap: at [facility]? N Abnormal Pap? N If Yes, date: Post Hysterectomy? N Is cervix present? 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 False negative and false positive results can and do occur for a number of reasons. Regular screening provides an aid in detecting treatable cervical abnormalities, but should not be used as the only means for detecting cervical dysplasia and carcinoma. MADIHA Diaz 06/15/12 1118 25 QUERY: Add FT3 if TSH abnormal? FT3 Y QUERY: Add FT4 if TSH Abnormal? FT4 Y 26 Note: Persistent reduction for 3 months or more in an eGFR <60 mL/min/1.73 m2 defines CKD. Patients with eGFR values >/=60 mL/min/1.73 m2 may also have CKD if evidence of persistent proteinuria is present. The original MDRD equation for estimated GFR is not valid for patients less than 18 years of age. Additional information may be found at www.kdoqi.org. 27 CHOLESTEROL INTERPRETATION: Desirable: Less than 200 MG/DL Borderline-High Risk: 200-239 MG/DL High-Risk: 240 MG/DL and over 28 HDL INTERPRETATION: Undesirable: High Risk: Less than 40 MG/DL Desirable: Low Risk: Greater than 60 MG/DL 29 LDL INTERPRETATION: Low Risk Optimal Level: LDL Less than 100 MG/DL Near or Above Optimal: LDL 100-129 MG/DL Borderline High Risk: LDL 130-159 MG/DL High Risk: LDL 160-189 MG/DL Very High Risk: LDL Greater than 189 MG/DL 30 A metabolite of Naproxen, O-desmethylnaproxen, has been shown to interfere with the Jendrassik-Francon[place] method for measuring total bilirubin. Samples from patients who have taken Naproxen have shown spurious elevation in total bilirubin levels. 31 Please note updated reference range, effective 02/28/10 Procedures Date Code Description Status 01/15/2017 92459 Visual Screening Test Completed 01/15/2017 29835 EKG Completed 01/15/2017 89343 Audiometry, Bekesy, Screening Completed 11/06/2015 69858 Visual Screening Test Completed 11/06/2015 94441 EKG Completed 11/06/2015 40217 Audiometry, Bekesy, Screening Completed 10/09/2014 77793 Spirometry Completed 10/09/2014 12819 Tympanometry Completed 06/10/2014 [id number] Mammogram Completed 06/01/2014 58991 Spirometry Completed 04/20/2014 95776 EKG Completed 08/29/2013 17341 EKG Completed 08/29/2013 79529 Injection DX/Therapeutic/Prophy Completed 08/29/2013 74990 Injection DX/Therapeutic/Prophy Completed 08/18/2013 67140 Spirometry Completed 08/18/2013 01248 Tympanometry Completed 03/27/2011 74305 Spirometry Completed 03/27/2011 32359 Tympanometry Completed 12/09/2010 91678 Spirometry Completed 12/09/2010 99658 Tympanometry Completed 07/30/2009 98015 Spirometry Completed 07/30/2009 13893 Tympanometry Completed 05/07/2009 15642 Spirometry Completed 05/07/2009 21271 Tympanometry Completed 02/15/2009 65519 Spirometry Completed 02/15/2009 56374 EKG Completed 05/23/2008 89793 Tympanometry Completed 06/23/2005 47913 Tympanometry Completed Encounters Type Date Location Provider Dx Diagnosis Office Visit 05/04/2018 [facility] Devin Diggs I10 Essential ( primary) 2:45p M.DSloan hypertension J44.9 Chronic obstructive pulmonary disease, unspecified R00.2 Palpitations K21.0 Gastro-esophageal reflux disease with esophagitis F41.9 Anxiety disorder, unspecified C50.012 Malignant neoplasm of nipple and areola, left female breast M15.9 Polyosteoarthritis, unspecified R53.83 Other fatigue R09.81 Nasal congestion R06.02 Shortness of breath F33.9 Major depressive disorder, recurrent, unspecified K30 Functional dyspepsia R05 Cough E55.9 Vitamin D deficiency, unspecified K58.0 Irritable bowel syndrome with diarrhea R10.84 Generalized abdominal pain E66.01 Morbid (severe) obesity due to excess calories M54.5 Low back pain M79.606 Pain in leg, unspecified M25.559 Pain in unspecified hip M25.569 Pain in unspecified knee E78.2 Mixed hyperlipidemia H90.6 Mixed conductive and sensorineural hearing loss, bilateral M81.0 Age-related osteoporosis w/o current pathological fracture G43.009 Migraine w/o aura, not intractable, w/o status migrainosus B86 Scabies R21 Rash and other nonspecific skin eruption L50.9 Urticaria, unspecified R55 Syncope and collapse Office Visit 11/16/2017 10:00a [facility] Devin Diggs I10 Essential ( primary) Rissa Hopkins hypertension J44.9 Chronic obstructive pulmonary disease, unspecified R00.2 Palpitations K21.0 Gastro-esophageal reflux disease with esophagitis F41.9 Anxiety disorder, unspecified C50.012 Malignant neoplasm of nipple and areola, left female breast M15.9 Polyosteoarthritis, unspecified R53.83 Other fatigue R09.81 Nasal congestion R06.02 Shortness of breath F33.9 Major depressive disorder, recurrent, unspecified K30 Functional dyspepsia R05 Cough E55.9 Vitamin D deficiency, unspecified K58.0 Irritable bowel syndrome with diarrhea R10.84 Generalized abdominal pain E66.01 Morbid (severe) obesity due to excess calories M54.5 Low back pain M79.606 Pain in leg, unspecified M25.559 Pain in unspecified hip M25.569 Pain in unspecified knee E78.2 Mixed hyperlipidemia R26.89 Other abnormalities of gait and mobility H90.6 Mixed conductive and sensorineural hearing loss, bilateral M81.0 Age-related osteoporosis w/o current pathological fracture Office Visit 01/15/2017 10:30a [facility] Devin Diggs I10 Gregg ( primary) Anderson Hopkins. hypertension J44.9 Chronic obstructive pulmonary disease, unspecified R00.2 Palpitations K21.0 Gastro-esophageal reflux disease with esophagitis F41.9 Anxiety disorder, unspecified C50.012 Malignant neoplasm of nipple and areola, left female breast M15.9 Polyosteoarthritis, unspecified Z68.38 Body mass index (BMI) 38.0-38.9, adult R53.83 Other fatigue R09.81 Nasal congestion R06.02 Shortness of breath F33.9 Major depressive disorder, recurrent, unspecified K30 Functional dyspepsia R05 Cough E55.9 Vitamin D deficiency, unspecified K58.0 Irritable bowel syndrome with diarrhea R10.84 Generalized abdominal pain E66.01 Morbid (severe) obesity due to excess calories M54.5 Low back pain M79.606 Pain in leg, unspecified M25.559 Pain in unspecified hip M25.569 Pain in unspecified knee E78.2 Mixed hyperlipidemia R26.89 Other abnormalities of gait and mobility H90.6 Mixed conductive and sensorineural hearing loss, bilateral Z00.01 Encounter for general adult medical exam w abnormal findings Office Visit 11/06/2015 8:30a [place] Devin Diggs Z00.01 Encounter for Rissa Hopkins general adult medical exam w abnormal findings I10 Essential (primary) hypertension J44.9 Chronic obstructive pulmonary disease, unspecified R00.2 Palpitations K21.0 Gastro-esophageal reflux disease with esophagitis F41.9 Anxiety disorder, unspecified C50.012 Malignant neoplasm of nipple and areola, left female breast M15.9 Polyosteoarthritis, unspecified R53.83 Other fatigue Z68.39 Body mass index (BMI) 39.0-39.9, adult R09.81 Nasal congestion R06.02 Shortness of breath F33.9 Major depressive disorder, recurrent, unspecified K30 Functional dyspepsia R05 Cough E55.9 Vitamin D deficiency, unspecified K58.0 Irritable bowel syndrome with diarrhea R10.84 Generalized abdominal pain E66.01 Morbid (severe) obesity due to excess calories Office Visit 10/02/2015 11:45a [facility] Devin Diggs I10 Essential ( primary) Rissa Hopkins hypertension J44.9 Chronic obstructive pulmonary disease, unspecified R00.2 Palpitations K21.0 Gastro-esophageal reflux disease with esophagitis F41.9 Anxiety disorder, unspecified C50.012 Malignant neoplasm of nipple and areola, left female breast M15.9 Polyosteoarthritis, unspecified R53.83 Other fatigue R09.81 Nasal congestion R06.02 Shortness of breath F33.9 Major depressive disorder, recurrent, unspecified K30 Functional dyspepsia R05 Cough E55.9 Vitamin D deficiency, unspecified Office Visit 10/09/2014 11:00a [facility] Devin Diggs 401.1 Hypertension Benign Rissa Hopkins 496 COPD Airway Obstruction Chronic Not Class Elsewhere 785.1 Palpitations 530.11 Esophagitis Reflux 300.00 Anxiety State Unspec 174.0 Malignant Neoplasm Female Breast Nipple & Areola 311 Depressive Disorder Not Elsewhere Spec 715.90 Osteoarthrosis Unspec Genlzd Or Localized Site Unspec 780.79 Malaise And Fatigue Other 466.0 Bronchitis Acute 382.9 Otitis Media Unspec 461.8 Sinusitis Acute Other 478.19 Other Disease Of Nasal Cavity And Sinuses 786.2 Cough 786.05 Shortness Of Breath 780.4 Dizziness & Giddiness Office Visit 06/01/2014 2:00p [facility] Malissa Archer, 789.07 Pain Abdominal CRIB PAD MAKER Generalized 782.3 Edema 786.05 Shortness Of Breath 401.1 Hypertension Benign 786.2 Cough Office Visit 04/20/2014 2:00p [facility] Malissa Archer, 786.05 Shortness Of CRIB PAD MAKER Breath 786.2 Cough 511.9 Pleurisy Effusion Unspec 782.3 Edema 401.1 Hypertension Benign 794.31 Electrocardiogram (ECG) (EKG) Abnormal Office Visit 08/29/2013 11:45a [facility] Noemí Nolasco, 461.8 Sinusitis Acute CRIB PAD MAKER Other 466.0 Bronchitis Acute 786.2 Cough 780.79 Malaise And Fatigue Other 462 Pharyngitis Acute 388.70 Otalgia & Earache Unspec 496 COPD Airway Obstruction Chronic Not Class Elsewhere 786.05 Shortness Of Breath 530.11 Esophagitis Reflux Office Visit 08/18/2013 10:30a [place] Noemí Nolasco, 461.8 Sinusitis Acute CRIB PAD MAKER Other 466.0 Bronchitis Acute 786.2 Cough 780.79 Malaise And Fatigue Other 462 Pharyngitis Acute 388.70 Otalgia & Earache Unspec 401.1 Hypertension Benign 300.00 Anxiety State Unspec 174.0 Malignant Neoplasm Female Breast Nipple & Areola 496 COPD Airway Obstruction Chronic Not Class Elsewhere 427.9 Cardiac Dysrhythmia Unspec 611.72 Lump Or Mass Breast 530.11 Esophagitis Reflux Office Visit 05/31/2013 8:30a [place] [facility] Gaurav, 401.1 Hypertension Benign NoemíKEERTHIP 300.00 Anxiety State Unspec 174.0 Malignant Neoplasm Female Breast Nipple & Areola 496 COPD Airway Obstruction Chronic Not Class Elsewhere 427.9 Cardiac Dysrhythmia Unspec 611.72 Lump Or Mass Breast 530.11 Esophagitis Reflux Office Visit 02/28/2013 10:00a [place] [facility] Gaurav, 401.1 Hypertension Benign NoemíKEERTHIP 300.00 Anxiety State Unspec 174.0 Malignant Neoplasm Female Breast Nipple & Areola 496 COPD Airway Obstruction Chronic Not Class Elsewhere 427.9 Cardiac Dysrhythmia Unspec 611.72 Lump Or Mass Breast 530.11 Esophagitis Reflux Office Visit 02/15/2013 1:30p [place] [facility] Gaurav, 401.1 Hypertension Benign Noemí, CRIB PAD MAKER 300.00 Anxiety State Unspec 174.0 Malignant Neoplasm Female Breast Nipple & Areola 496 COPD Airway Obstruction Chronic Not Class Elsewhere 427.9 Cardiac Dysrhythmia Unspec 611.72 Lump Or Mass Breast Office Visit 06/18/2012 [place] Leslie James CRIB PAD MAKER 401.1 Hypertension 9:00a Office Benign 300.00 Anxiety State Unspec 174.0 Malignant Neoplasm Female Breast Nipple & Areola 496 COPD Airway Obstruction Chronic Not Class Elsewhere 427.9 Cardiac Dysrhythmia Unspec 611.72 Lump Or Mass Breast Office Visit 06/11/2012 [place] Leslie James CRIB PAD MAKER V72.32 Pap Smear 9:30a Office Confirmation V76.2 Screening Malignant Neoplasm Cervix V72.31 Routine Communication Consultant Examination Office Visit 06/02/2012 8:45a [place] [facility] Leslie James CRIB PAD MAKER 174.0 Malignant Neoplasm Female Breast Nipple & Areola 300.00 Anxiety State Unspec 401.1 Hypertension Benign 496 COPD Airway Obstruction Chronic Not Class Elsewhere 427.9 Cardiac Dysrhythmia Unspec 611.72 Lump Or Mass Breast Office Visit 01/21/2012 2:00p [place] Clinton Bryant CRIB PAD MAKER 174.0 Malignant Neoplasm Female Breast Nipple & Areola 300.00 Anxiety State Unspec 401.1 Hypertension Benign Office Visit 10/07/2011 2:30p [place] [facility] Devin Diggs, 611.72 Lump Or Mass M.D. Breast 611.71 Mastodynia 786.59 Pain Chest Other 300.00 Anxiety State Unspec Office Visit 06/24/2011 2:00p [place] Devin Diggs 786.05 Shortness Of M., M.D. Breath 780.79 Malaise And Fatigue Other 785.1 Palpitations 300.00 Anxiety State Unspec Office Visit 06/16/2011 1:15p [place] Devin Diggs, 786.59 Pain Chest Other M.D. 785.1 Palpitations 300.00 Anxiety State Unspec Office Visit 03/27/2011 1:30p [place] Clinton Bryant CRIB PAD MAKER 388.70 Otalgia & Earache Unspec 786.05 Shortness Of Breath 034.0 Streptococcal Sore Throat Office Visit 12/09/2010 11:45a [facility] Devin DiggsSloan, 382.9 Otitis Media M.D. Unspec 786.05 Shortness Of Breath 466.0 Bronchitis Acute 491.21 Bronchitis Obstructive Chronic W/Acute Exacerbation Office Visit 08/27/2010 11:15a [place] [facility] Devin Diggs 401.1 Hypertension Benign M., M.D. 466.0 Bronchitis Acute 464.00 Acute Laryngitis, Without Mention Of Obstruction 300.00 Anxiety State Unspec Office Visit 10/15/2009 1:30p [place] Dontae, Labetziada Michael., 382.9 Otitis Media M.D. Unspec 786.05 Shortness Of Breath 466.0 Bronchitis Acute 786.2 Cough Office Visit 07/30/2009 1:00p [facility] Devin Diggs, 381.04 Otitis Media M.D. Allergic Serous Acute 786.05 Shortness Of Breath 786.2 Cough 780.79 Malaise And Fatigue Other Office Visit 07/12/2009 3:15p [facility] Devin Diggs 786.05 Shortness Of M., M.D. Breath 466.0 Bronchitis Acute 789.07 Pain Abdominal Generalized 780.79 Malaise And Fatigue Other Office Visit 05/07/2009 10:15a [place] [facility] Devin Diggs 401.1 Hypertension Yany Rodriguez., M.D. 372.39 Conjunctivitis Other 382.9 Otitis Media Unspec 466.0 Bronchitis Acute Plan of Treatment Future Appointment(s):06/03/2018 9:00 am - Devin Diggs M.D. at [facility]05/04/2018 - Devin Diggs M.D.I10 Essential (primary) hypertensionComments:CHECK BP TIW ( PRN)F/U LABDIET AND FLUID COUNSELING LOW SODIUM DIETWT LOSSF/U LABJ44.9 Chronic obstructive pulmonary disease, unspecifiedComments:NEB OR MDI AND /OR QZPQKSL87.2 PalpitationsComments:STABLE AND ASYMPTOMATIC RELAXATION TECHNIQUES DISCUSSED COUNSELED RE: STRESSORS IN LIFEK21.0 Gastro-esophageal reflux disease with esophagitisComments:AVOID CAFFEINE, ETOH AND SPICY FOODSTUMS OR MYLANTA PRN CALL WITH PROBLEMS OR CONCERNS STABLE AND XEOSICYJMOKZY76.9 Anxiety disorder, unspecifiedComments: COUNCELLING AND REASSURANCE RELAXATION TECHNIQUES DISCUSSEDCOUNSELED RE: STRESSORS IN LIFE AVOID ALLENERGY/HIGH CAFFEINE UUYIJFB20.012 Malignant neoplasm of nipple and areola, left female breastComments:F/U WITH TTHKQWZCU98.9 Polyosteoarthritis, unspecifiedComments:EXERCISE/HEAT/ MESSAGETYLENOL OR MOTRIN PRNAVOID HEAVY LIFTINGWT LOSSR53.83 Other fatigueComments:INCRFEASE PO FLUIDCOUNCELLING AND REASSURANCE RESTR09.81 Nasal congestionComments:INCREASE PO FLUIDTYLENOL OR MOTRIN PRNREST USE ANTIHISTAMINE PRNR06.02 Shortness of breathComments:INCREASE PO SLFKHMOOUG82.9 Major depressive disorder, recurrent, unspecifiedComments:COUNCELLING AND REASSURANCE RELAXATION TECHNIQUES DISCUSSED COUNSELED RE: STRESSORS IN LIFEK30 Functional dyspepsiaComments:AVOID CAFFEINE, ETOH AND SPICY FOODSTUMS OR MYLANTA PRN CALL WITH PROBLEMS OR [id number] CoughComments:INCREASE CLEAR LIQUIDSSTEAMGARGLE WARM SALT H2O TID ROBITUSSIN DM PRNE55.9 Vitamin D deficiency, unspecifiedComments:INCREASE EXPOSURE TO SUNREVIEW OF DIETK58.0 Irritable bowel syndrome with diarrheaComments:TYLENOL OR MOTRIN PRNINCREASE PO FLUIDF/U VXZFSUSNM90.84 Generalized abdominal painComments:TYLENOL OR MOTRIN PRNINCREASE PO FLUIDLAXATIVE PRN F/U DIRECTEDF/U UYWTTRZLQ23.01 Morbid (severe) obesity due to excess caloriesComments:WT LOSS COUNCELLINGEXERCISEDIET MLUJTTSFSKKB25.5 Low back painComments:EXERCISE/HEAT /MESSAGEAVOID HEAVY LIFTING WT LOSSTYLENOL OR MOTRIN PRN DUR REJKZYYZ39.606 Pain in leg, unspecifiedComments:TYLENOL OR MOTRIN PRN EXERCISE/HEAT/MESSAGE DUR LDXBWQOC57.559 Pain in unspecified hipComments:EXERCISE/HEAT/MESSAGETYLENOL OR MOTRIN PRNAVOID HEAVY LIFTINGWT LOSS DUR AVOKHNIT83.569 Pain in unspecified kneeComments:EXERCISE/HEAT /MESSAGEAVOID HEAVY LIFTING WT LOSSTYLENOL OR MOTRIN PRN DUR ZJMYGIII30.2 Mixed hyperlipidemiaComments:DIET REVIEWED CONTINUE DIETWT LOSSF/U LAB FBWH90.6 Mixed conductive and sensorineural hearing loss, bilateralComments:OBSERVE F/U WITH ENT PRNM81.0 Age-related osteoporosis without current pathological fractureComments:STRESS EXERCISESCALCIUM SUPPLEMENT VIT D SUPPLEMENTHEALTHY LIVING KXASVYFBNACY60.009 Migraine without aura, not intractable, without status migrainosusComments:TYLENOL OR MOTRIN PRNRELAXATION/AVOID [id number] ScabiesNew Medication:Elimite 5 % - apply to all skin and leave for 12 hours then rinseComments:SKIN CARE [id number] Rash and other nonspecific skin eruptionComments:SKIN CARE INSTRUCTIONS LOTION OR BABY OIL 2-3 APPLICATION PER DAYUSE MOISTURIZING SOAPAVOID PROLONGED WATER EXPOSUREAVOID USING HOT WATER IN LWNDQTD09.9 Urticaria , unspecifiedComments:SKIN CAREAVOID ITCHING/SCRATCHING SKINLOTION PRN BENEDRYL / ANTIHISTAMINE PRNR55 Syncope and collapseComments:OBSERVE SAFETYCOUNCELLING AND REASSURANCE
[2018-06-01 12:37] VITALS: BP 147/63
--- NOTE | 2018-06-01 12:55 | UC ---
General HPI - HPI Summary HPI Summary: ? head lice. c/o 2 week hx itchy scalp. unsure if lice so self tx with RID twice and dandruff shampoo. - History of Current Complaint Chief Complaint: UCSkin Stated Complaint: SCALP COMPLAINT Time Seen by Provider: 06/01/18 12:27 Hx Obtained From: Patient Onset/Duration: Gradual Onset Timing: Constant Pain Intensity: 0 - Allergy/Home Medications Allergies/Adverse Reactions: Allergies Allergy/AdvReac Type Severity Reaction Status Date / Time No Known Allergies Allergy Verified 06/01/18 12:34 PMH/Surg Hx/FS Hx/Imm Hx Previously Healthy: Yes - Surgical History Surgical History: Yes Surgery Procedure, Year, and Place: left breast lumpectomy/nodes. hiatal hernia repair. cardiac cath - Family History Known Family History: Positive: Hypertension Negative: Diabetes - Social History Occupation: Retired Alcohol Use: None Substance Use Type: None Smoking Status (MU): Never Smoked Tobacco - Immunization History Most Recent Influenza Vaccination: [id number] Vaccination Up to Date: Yes Review of Systems Constitutional: Negative Skin: Negative Eyes: Negative ENT: Negative Respiratory: Negative Cardiovascular: Negative Gastrointestinal: Negative Genitourinary: Negative Motor: Negative Neurovascular: Negative Musculoskeletal: Negative Neurological: Negative Psychological: Negative Is Patient Immunocompromised?: No All Other Systems Reviewed And Are Negative: Yes Physical Exam Triage Information Reviewed: Yes Appearance: Well-Appearing Vital Signs: Initial Vital Signs Temp 97.9 F 06/01/18 12:35 Pulse 64 06/01/18 12:35 Resp 16 06/01/18 12:35 BP 147/63 06/01/18 12:35 Pulse Ox 98 06/01/18 12:35 Vital Signs Reviewed: Yes Eyes: Positive: Conjunctiva Clear ENT: Positive: Normal ENT inspection Neck: Positive: Supple, Nontender Respiratory: Positive: Lungs clear, Normal breath sounds Cardiovascular: Positive: RRR, No Murmur Abdomen Description: Positive: Nontender, No Organomegaly, Soft Bowel Sounds: Positive: Present Musculoskeletal: Positive: ROM Intact Neurological: Positive: Alert Psychological: Positive: Age Appropriate Behavior Skin Exam: Normal, Other - Infested with head lice. Course/Dx - Course Course Of Treatment: need to address the home, family and self tx stressed to break the cycle of head lice. - Differential Dx - Multi-Symptom Provider Diagnoses: Head lice Discharge - Sign-Out/Discharge Documenting (check all that apply): Patient Departure All imaging exams completed and their final reports reviewed: No Studies - Discharge Plan Condition: Stable Disposition: HOME Prescriptions: Permethrin 1% LOTION* [Nix 1% LOTION*] 1 applic TOPICAL SEE INSTRUCTIONS #1 btl Patient Education Materials: Pediculosis (ED) Referrals: Devin Diggs MD [Primary Care Provider] - 7 Days - Billing Disposition and Condition Condition: STABLE Disposition: Home
== END 2018-06-01 13:23 | disposition home or self-care (01) ==
LOC: UCCORT 12:01
DX: B85.0 Pediculosis due to Pediculus humanus capitis (principal)
CPT/HCPCS: 99212; G0463